=== PATIENT | female | born 1955 | race African-American/Black ===

== ENCOUNTER 2017-07-25 13:00 | Outpatient (CLI) | payer MEDICARE, OTHER | END 2017-07-25 13:01 | disposition home or self-care (01) | LOC: BICCT 13:00 | PROVIDERS: ATTEND Family Medicine | DX: R91.1 Solitary pulmonary nodule (principal); R91.8 Other nonspecific abnormal finding of lung field | CPT/HCPCS: 71250 ==

== ENCOUNTER 2017-07-30 10:20 | Emergency (ER) | payer MEDICARE, OTHER ==
[2017-07-30] MEDS ORDERED: HYDROcodone/Acetaminophen 10/325 mg Tablet ONE (12:01)
[2017-07-30] MEDS ORDERED: Ketorolac Tromethamine 30 MG/ML VIAL ONE (12:01)
== END 2017-07-30 12:33 | disposition home or self-care (01) ==
LOC: ERS 10:20
DX: M54.42 Lumbago with sciatica, left side (principal); I10 Essential (primary) hypertension; F32.9 Major depressive disorder, single episode, unspecified; F17.200 Nicotine dependence, unspecified, uncomplicated; Z79.84 Long term (current) use of oral hypoglycemic drugs; Z79.899 Other long term (current) drug therapy
CPT/HCPCS: 96372; J1885

== ENCOUNTER 2017-10-06 14:16 | Outpatient (CLI) | payer MEDICARE, OTHER | END 2017-10-06 14:17 | disposition home or self-care (01) | LOC: BICMAMMO 14:16 | PROVIDERS: ATTEND Obstetrics & Gynecology | DX: Z12.31 Encounter for screening mammogram for malignant neoplasm of breast (principal) | CPT/HCPCS: 77063; 77067 ==

== ENCOUNTER 2018-01-08 12:38 | Outpatient (CLI) | payer MEDICARE, OTHER ==
--- NOTE | 2018-01-08 14:46 | RAD ---
LEFT KNEE THREE VIEWS: HISTORY: A 62-year-old female with a history of left knee pain, chronic. FINDINGS: Tricompartment arthrosis and degenerative changes are noted with joint space loss and some hypertroph ic osteophytosis. No evidence for acute fracture or dislocation. IMPRESSION: Tricompartment degenerative and osteoarthrosis changes, particularly of the lateral compartment, foll owed by the medial compartment. POS: MAKAYLA
--- NOTE | 2018-01-08 14:49 | RAD ---
RIGHT KNEE THREE VIEWS: HISTORY: A 62-year-old female with a history of right knee pain, chronic. FINDINGS: There are some degenerative changes involving the knee. There is an area measuring approximately 2.5 cm in diameter, in the posterior intercondylar imminence region, probably representing some extensiv e intraosseous cystic change, presumably from intraosseous ganglion cysts. This appears to be well m arginated, with a stable appearance from 12/20/2016. IMPRESSION: Stable appearing degenerative changes, including fairly prominent intraosseous cystic change involvin g the posterior tibia, in the midline, involving the posterior intercondylar imminence region, unchan ged from prior study. POS: KARLI
== END 2018-01-08 12:39 | disposition home or self-care (01) ==
LOC: RAD 12:38
PROVIDERS: ATTEND Surgery
DX: M25.561 Pain in right knee (principal); M25.562 Pain in left knee; M17.0 Bilateral primary osteoarthritis of knee

== ENCOUNTER 2018-03-09 12:46 | Emergency (ER) | payer MEDICARE, OTHER | END 2018-03-09 13:14 | disposition home or self-care (01) | LOC: ERS 12:46 | DX: M75.102 Unspecified rotator cuff tear or rupture of left shoulder, not specified as traumatic (principal); E78.5 Hyperlipidemia, unspecified; E11.9 Type 2 diabetes mellitus without complications; I10 Essential (primary) hypertension; F32.9 Major depressive disorder, single episode, unspecified; F17.210 Nicotine dependence, cigarettes, uncomplicated; Z79.84 Long term (current) use of oral hypoglycemic drugs; Z79.899 Other long term (current) drug therapy | CPT/HCPCS: 99283 ==

== ENCOUNTER 2019-03-28 10:34 | Outpatient (CLI) | payer MEDICARE, MEDICAID ==
[2019-03-28] MEDS ORDERED: Iopamidol-370 76% 500 ML 1 ML ONE (13:50)
--- NOTE | 2019-03-28 14:02 | CT ---
CT OF THE ABDOMEN AND PELVIS WITH AND WITHOUT IV CONTRAST: INDICATION: History of hematuria. COMPARISON: CT pulmonary lung scan dated 10/20/2016. FINDINGS: No renal or ureteral calculus is evident. No hydronephrosis is evident. There is asymmetry in size of the right and left kidney which appears similar to the comparison examination. No solid renal les ion is demonstrated. There is bilateral symmetric excretion. The visualized renal collecting system appears within normal limits. The visualized bladder is unremarkable-appearing. There is a stable 9 mm right middle lobe pulmonary nodule. There is scattered emphysema. There are small hepatic cysts. Pancreas, adrenal gland, and spleen appear within normal limits. There are moderate calcifications involving the abdominopelvic vasculature. There is a fat-containing umbilical hernia. There is scattered colonic diverticulosis. There is a normal appendix in the right lower quadrant. There is a fibroid uterus. Rectum and perirectal soft tissues are unremarkable-appearing. There is scattered degenerative and osteoarthritic change. IMPRESSION: 1. No renal or ureteral calculus. 2. No solid renal mass edema demonstrated. No gross urothelial lesion is evident. 3. Fibroid uterus. 4. Stable right middle lobe pulmonary nodule. This has been stable since 10/20/2016 is likely benign . Emphysematous change of both lung bases. 5. Colonic diverticulosis. 6. Fat-containing umbilical hernia. POS: [facility]
== END 2019-03-28 10:35 | disposition home or self-care (01) ==
LOC: BICCT 10:34
PROVIDERS: ATTEND Urology
DX: R31.29 Other microscopic hematuria (principal); D25.9 Leiomyoma of uterus, unspecified; K57.30 Diverticulosis of large intestine without perforation or abscess without bleeding; K42.9 Umbilical hernia without obstruction or gangrene; R91.1 Solitary pulmonary nodule
CPT/HCPCS: 74178; Q9967

== ENCOUNTER 2021-08-04 09:15 | Emergency (ER) | payer MEDICARE, MEDICAID ==
[2021-08-04] MEDS ORDERED: Ketorolac Tromethamine 30 MG/ML VIAL ONE (10:01)
== END 2021-08-04 10:24 | disposition home or self-care (01) ==
LOC: ERS 09:15
DX: M25.512 Pain in left shoulder (principal); E11.9 Type 2 diabetes mellitus without complications; E78.5 Hyperlipidemia, unspecified; E78.00 Pure hypercholesterolemia, unspecified; I10 Essential (primary) hypertension; F17.210 Nicotine dependence, cigarettes, uncomplicated; Z79.899 Other long term (current) drug therapy; Z79.84 Long term (current) use of oral hypoglycemic drugs
CPT/HCPCS: 96372; 99283; J1885

== ENCOUNTER 2022-01-09 12:33 | Emergency (ER) | payer MEDICARE, MEDICAID ==
[2022-01-09] MEDS ORDERED: Ketorolac Tromethamine 30 MG/ML VIAL ONE (13:35)
== END 2022-01-09 13:42 | disposition home or self-care (01) ==
LOC: ERS 12:33
DX: M25.512 Pain in left shoulder (principal); E11.9 Type 2 diabetes mellitus without complications; E78.00 Pure hypercholesterolemia, unspecified; I10 Essential (primary) hypertension; F17.210 Nicotine dependence, cigarettes, uncomplicated; Z79.84 Long term (current) use of oral hypoglycemic drugs; Z79.899 Other long term (current) drug therapy
CPT/HCPCS: 96372; J1885

== ENCOUNTER 2023-05-02 07:23 | Outpatient (CLI) | payer OTHER, MEDICAID ==
[2023-05-02] MEDS ORDERED: Iopamidol 370 76% 100 ML VIAL ONE (12:23)
== END 2023-05-02 07:24 | disposition home or self-care (01) ==
LOC: CT 07:23
PROVIDERS: ATTEND Surgery
DX: R22.2 Localized swelling, mass and lump, trunk (principal); D17.0 Benign lipomatous neoplasm of skin and subcutaneous tissue of head, face and neck
CPT/HCPCS: 70491; 82565; Q9967